=== PATIENT | male | born 1990 | race Caucasian/White ===

== ENCOUNTER 2018-07-31 20:16 | Emergency (ER) | payer MEDICAID ==
[2018-08-01] MEDS: KETOROLAC 60 MG INJ IM (00:17)
[2018-08-01] MEDS ORDERED: CLINDAMYCIN 600 MG INJ IM (02:00)
[2018-08-01] MEDS: CLINDAMYCIN 300 MG INJ IM (02:21)
== END 2018-08-01 02:30 | disposition home or self-care (01) ==
LOC: FTE 20:16
DX: S63.91XA Sprain of unspecified part of right wrist and hand, initial encounter (principal); L03.113 Cellulitis of right upper limb; F17.210 Nicotine dependence, cigarettes, uncomplicated; Y04.0XXA Assault by unarmed brawl or fight, initial encounter
CPT/HCPCS: 73130; 73130-RT; 96372; 99284-25